=== PATIENT | female | born 1970 | race Caucasian/White ===

== ENCOUNTER 2017-01-13 06:00 | Day surgery (SDC) | payer OTHER ==
[2017-01-08 13:56] VITALS: BMI 26.6
--- NOTE | 2017-01-12 20:06 | HP ---
[facility] - Chief Complaint Chief Complaint: pt is admitted to remove a uterine polyp and at the same time for a colposcopy of the cervix of the uterus for positive HPV high risk. History of Present Illness: Pt had a recent TV U/S to evaluate a fibroid uterus and was found to had a polyp of her uterus. History Source: Patient Limitations to Obtaining History: No Limitations - Past Medical History Allergies/Adverse Reactions: Allergies Allergy/AdvReac Type Severity Reaction Status Date / Time SEASONAL Allergy Uncoded 01/08/17 14:07 DIRECTOR TARGETED MARKETING: No: Alzheimer's, CVA, Dementia, Migraine, Multiple Sclerosis, Peripheral Neuropathy, Parkinson's, Seizure, Syncope, TIA, Vertigo, Other Cardiovascular: No: AFIB, Aneurysm, Aortic Insufficiency, Aortic Stenosis, CAD, CHF, Deep Vein Thrombosis, HTN, Hyperlipdemia, TN, Mitral Insufficiency, Mitral Stenosis, Murmur, Pulmonary Hypertension, Other Pulmonary: No: Asthma, Bronchitis, Cancer, COPD, O2 Dependent, Pneumonia, Previously Intubated, Pulmonary Embolus, Pulmonary Fibrosis, Sleep Apnea, Other Gastrointestinal: No: Ascites, Cancer, Constipation, Crohn's Disease, Diverticulitis, Diverticulosis, Esophageal Varices, Gastritis, GERD, GI Bleed, Hemorrhoids, Hiatal Hernia, Inflamatory Bowel Disease, Irritable Bowel Disease, Pancreatitis, Peptic Ulcer Disease, Ulcerative Colitis, Other Hepatobiliary: No: Cirrhosis, Cholelithiasis, Cholecystitis, Choledocholithiasis , Hepatitis A, Hepatitis B, Hepatitis C, Other Renal/: No: Renal Failure, Renal Inusuff, BPH, Cancer, Hematuria, Hemodialysis , Neurogenic Bladder, Renal Calculi, UTI, Other Reproductive: Yes: Fibroids ...LMP: 01/02/17 ...: No ...: 2 ...Para: 2 Heme/Onc: No: Anemia, B12 Deficiency, Bleeding Disorder, Cancer, Current Chemotherapy, Current Radiation Therapy, Hemochromatosis, Hypercoaguable State, Myeloproliferative Synd, Sickle Cell Disease, Sickle Cell Trait, Thrombocytopenia, Other Infectious Disease: No: AIDS, C-Diff, Herpes Zoster, HIV, MRSA, STD's, Tuberculosis, VREF, Other Musculoskeletal: No: Bursitis, Chronic low back pain, Hemiparesis, Hemiplegia, Osteoarthritis, Paraplegia, Other Rheumatology: No: Fibromyalgia, Gout, Lupus, Rheumatoid Arthritis, Sarcoidosis, Vasculitis, Other Endocrine: No: Lamoille's Disease, Junior's Disease, Diabetes Insipidus, Diabetes Mellitus, Hyperparathyroidism, Hyperthyroidism, Osteopenia, SIADH, Other Dermatology: No: Basal Cell, Cellulitis, Eczema, Melanoma, Psoriasis, Squamous Cell (Pt has hx of GB removed ,T/A,BTL), Other - Current Medications Current Medications: Home Medications Medication Instructions Recorded Cetirizine HCl [Zyrtec -] 10 mg PO DAILY 01/08/17 Levothyroxine [Synthroid -] 25 mcg PO DAILY 01/08/17 Nasonex DAILY 01/08/17 Satellite Physical Exam - Physical Examination General Appearance: Well Nourished, Well Developed, Alert & Oriented x3, No Distress, Calm, Anxious, Ashen, Mild Distress, Moderate Distress, Severe Distress, Obese, Pallor, Poor Hygeine, Thin, Other ENT: Clear, No Discharge, No masses, Drooling, Hoarseness, Nasal Congestion, Rhinnorhea, Thrush, Other Lung: Clear to auscultation, Normal air movement, Other Heart: Regular rate & rhythm, Normal S1, Normal S2, No murmurs, Gallops, Rubs, Other Breasts: Soft, Non-Tender, No masses bilaterally, Breast Implants, Dimpling, Discharge from Nipple, Gynecomastia, Nipple Inversion, Skin Changes, Other Abdomen: Soft, No tenderness, Normal bowel sounds, No CVA, No hepatosplenomegaly , No masses, Other Extremities: No edema, No tenderness/swelling, Normal pulses, No clubbing, No cyanosis, Other Pelvic Exam: Within normal limits External Genitalia, Within normal limits Vagina, Within normal limits Cervix, Within normal limits Uterus, Within normal limits [facility]: Intact, Alert, Oriented (pt has hx of gb removed , t/a , btl) Satellite Impression/Plan - Impression/Plan Impression: uterine polyp to be removed and colposcopy to investigate for cervical dysplasia because of positive HPV high risk Operative Procedure: Hysteroscopy,D/C , polypectomy and colposcopy with cervical biopsies and ecc. Date to be Performed: 01/13/17
[2017-01-13] MEDS ORDERED: LIDOCAINE HCL/PF 2% SDV 5ML VIAL ONE (08:03)
[2017-01-13] MEDS ORDERED: PROPOFOL 20 ML ONE (08:04)
[2017-01-13] MEDS ORDERED: MIDAZOLAM HCL 2 MG/2 ML SINGLE DOSE VIAL ONE ×2 (08:04)
[2017-01-13] MEDS ORDERED: oxyCODONE HCL 5 MG TABLET PO PRN (08:47)
[2017-01-13] MEDS ORDERED: ONDANSETRON 4 MG/2 ML VIAL IVPUSH PRN (08:47)
[2017-01-13] MEDS ORDERED: PROMETHAZINE HCL 25 MG/1 ML VIAL IVPUSH PRN (08:47)
--- NOTE | 2017-01-13 10:20 | OP ---
DATE OF OPERATION: 01/13/2017 PREOPERATIVE DIAGNOSIS: Polyp of the uterus and human papillomavirus high risk positive of cervix. PROCEDURES: 1. Colposcopy. 2. Loop electrosurgical excision procedure. 3. Cervical biopsies. 4. Hysteroscopy. 5. Dilatation and curettage. 6. Polypectomy. SURGEON: Alex Puente MD ANESTHESIA: MAC, given by Dr. Maurer. ESTIMATED BLOOD LOSS: Approximately 5 mL. DESCRIPTION OF PROCEDURES: This patient was brought to the operating room, placed in the supine position, given anesthesia by Dr. Maurer, placed in the lithotomy position. The patient was then prepped and draped, and the cervix was treated with acetic acid, and colposcopy was performed. The colposcopic examination was negative. The green-light examination was negative. The transformation zone was partially noted. This procedure was followed by a 4-quadrant biopsy using a LEEP at 50/50 murrell, blend 1, and biopsies were taken from 12 o'clock, 3 o'clock, 6 o'clock, and 9 o'clock. This was followed by an ECC, and the ECC was followed by a hysteroscopy which revealed abundant endometrial tissue and polyps noted on the posterior wall of the uterus. The polyps were removed using a polyp forceps, and endometrial tissue was removed using a medium-sized curette. Lots of tissue were obtained and sent to Pathology for analysis. The patient did well. Her vital signs were stable. Her hemostasis was good. The cervical hemostasis was achieved using a 5-mm ball curette using 50/50 mrurell, blend 1 power to cauterize the cervical biopsy areas, which were taken by LEEP procedure. ALEX PUENTE M.D. [id number]
[2017-01-13 12:11] VITALS: TEMP 97.8
[2017-01-13 13:52] VITALS: BP 98/72; PULSE 82
--- NOTE | 2017-01-14 15:02 | PATH ---
Surgical Pathology Report Patient Name: FERCHO OSEGUERA [facility]. Rec. #: [id number] /Age/Gender: 1970 (Age: 46) / F Account: [id number] Location: [facility] SURGICAL Taken: 01/13/2017 Received: 01/13/2017 Reported: 01/14/2017 Physicians: Guy Puente M.D. Specimen(s) Received A: CERVICAL BIOPSY 12:00 B: CERVICAL BIOPSY 9:00 C: CERVICAL BIOPSY 3:00 D: CERVICAL BIOPSY 6:00 E: ENDOCERVICAL CURETTINGS F: ENDOMETRIAL CURETTINGS G: ENDOMETRIAL POLYP Clinical History Polyp of corpus uteri Final Diagnosis A. CERVIX, 12:00, BIOPSY: CERVICAL SQUAMOUS AND ENDOCERVICAL MUCOSA WITH LOW GRADE SQUAMOUS INTRAEPITHELIAL LESION (CERVICAL INTRAEPITHELIAL NEOPLASIA 1/BK 1). B. CERVIX, 9:00, BIOPSY: CERVICAL SQUAMOUS AND ENDOCERVICAL MUCOSA WITH LOW GRADE SQUAMOUS INTRAEPITHELIAL LESION (CERVICAL INTRAEPITHELIAL NEOPLASIA 1/BK 1). C. CERVIX, 3:00, BIOPSY: CERVICAL SQUAMOUS AND ENDOCERVICAL MUCOSA WITH FOCAL LOW GRADE SQUAMOUS INTRAEPITHELIAL LESION (CERVICAL INTRAEPITHELIAL NEOPLASIA 1/BK 1). D. CERVIX, 6:00, BIOPSY: CERVICAL SQUAMOUS AND ENDOCERVICAL MUCOSA WITH FOCAL HPV RELATED KOILOCYTIC CHANGE. E. ENDOCERVIX, CURETTAGE: FRAGMENTS OF BENIGN ENDOCERVICAL TISSUE. FRAGMENTS OF ENDOMETRIAL POLYP. F. ENDOMETRIUM, CURETTAGE: POLYPOID FRAGMENTS OF DISORDERED PROLIFERATIVE ENDOMETRIUM COMPATIBLE WITH FRAGMENTS OF ENDOMETRIAL POLYP. BACKGROUND FRAGMENTS OF DISORDERED PROLIFERATIVE ENDOMETRIUM WITH FOCAL FEATURES OF CHRONIC ENDOMETRITIS. SCANT FRAGMENTS OF BENIGN ENDOCERVICAL TISSUE. G. ENDOMETRIAL POLYP, POLYPECTOMY: POLYPOID FRAGMENTS OF DISORDERED PROLIFERATIVE ENDOMETRIUM COMPATIBLE WITH ENDOMETRIAL POLYP. FRAGMENTS OF BENIGN SMOOTH MUSCLE. SCANT FRAGMENTS OF BENIGN ENDOCERVICAL TISSUE. Electronically Signed Jame Thornton M.D. Gross Description A. Received in formalin labeled "cervical biopsy 12:00" is a 1.0 x 0.3 x 0.2 cm wheeler, irregular, unoriented portion of soft tissue which is partially surfaced by a wheeler, shiny glistening mucosa. The specimen is inked in green, serially sectioned and entirely submitted in one cassette. B. Received in formalin labeled "cervical biopsy 9:00" is a 0.6 x 0.6 x 0.2 cm wheeler, irregular, unoriented portion of soft tissue which is partially surfaced by a wheeler, shiny and glistening mucosa. The specimen is inked green, trisected and entirely submitted in one cassette. C. Received in formalin labeled "cervical biopsy 3:00" is a 0.6 x 0.5 x 0.3 cm wheeler, irregular, unoriented portion of soft tissue which is partially surfaced by a wheeler, shiny and glistening mucosa. The specimen is inked green, trisected and entirely submitted in one cassette. D. Received in formalin labeled "cervical biopsy 6:00" is a 0.5 x 0.4 x 0.3 cm wheeler, irregular, unoriented portion of soft tissue which is partially surfaced by a wheeler, shiny and glistening mucosa. The specimen is inked green, bisected and entirely submitted in one cassette. E. Received in formalin labeled "endocervical curettings" is a 1.5 x 1.1 x 0.3 cm aggregate of wheeler soft tissue fragments. The formalin is filtered and the specimen is entirely submitted in one cassette. F. Received in formalin labeled "endometrial curettings" is a 3.0 x 3.0 x 0.4 cm aggregate of wheeler soft tissue fragments. The formalin is filtered and the specimen is entirely submitted in 3 cassettes. G. Received in formalin labeled "endometrial polyp" is a 1.4 x 1.3 x 0.3 cm aggregate of wheeler-pink, irregular to polypoid portions of soft tissue. The specimen is submitted in toto in one cassette. 01/13/2017 [facility]01/13/2017
== END 2017-01-13 13:50 | disposition home or self-care (01) ==
LOC: JASU-SURG 06:00
PROVIDERS: ATTEND Obstetrics & Gynecology
PROC: 0UBC7ZX Excision of Cervix, Via Natural or Artificial Opening, Diagnostic (ICD-10-PCS; principal; 2017-01-13 08:00)
PROC: 0UB98ZX Excision of Uterus, Via Natural or Artificial Opening Endoscopic, Diagnostic (ICD-10-PCS; 2017-01-13 08:00)
DX: N84.0 Polyp of corpus uteri (principal); R87.810 Cervical high risk human papillomavirus (HPV) DNA test positive
CPT/HCPCS: 88305-TC; 94760

== ENCOUNTER 2019-07-09 13:46 | Emergency (ER) | payer OTHER ==
[2019-07-09 13:55] VITALS: BMI 23.1
[2019-07-09] MEDS ORDERED: METOCLOPRAMIDE HCL INJECTION 10 MG/2 ML VIAL IVPB ONE (14:36)
[2019-07-09] MEDS ORDERED: ACETAMINOPHEN 1000 MG/100 ML VIAL (NON FORMULARY) IVPB ONE (14:36)
[2019-07-09] MEDS ORDERED: SODIUM CHLORIDE 1,000 ML IV STA (14:36)
--- NOTE | 2019-07-09 14:37 | PDOC ---
History of Present Illness - General Chief Complaint: Headache Stated Complaint: DIZZINESS/MIGRAINE/NAUSAU Time Seen by Provider: 07/09/19 14:18 History Source: Patient Exam Limitations: No Limitations Past History - Travel Traveled outside of the country in the last 30 days: No Close contact w/someone who was outside of country & ill: No - Past Medical History Allergies/Adverse Reactions: Allergies Allergy/AdvReac Type Severity Reaction Status Date / Time No Known Drug Allergies Allergy Verified 01/13/17 21:13 SEASONAL Allergy Uncoded 01/08/17 14:07 Home Medications: Ambulatory Orders Cetirizine HCl [Zyrtec -] 10 mg PO DAILY 01/08/17 Levothyroxine [Synthroid -] 25 mcg PO DAILY 01/08/17 Nasonex DAILY 01/08/17 Sulfamethoxazole/Trimethoprim [Bactrim Ds -] 1 tab PO BID #27 tablet 07/09/19 Anemia: No Asthma: No Cancer: No Cardiac Disorders: No CVA: No COPD: No CHF: No Dementia: No Diabetes: No GI Disorders: No Disorders: No HTN: No Hypercholesterolemia: No Liver Disease: No Seizures: No Thyroid Disease: Yes Other medical history: Migraines - Surgical History Cholecystectomy: Yes - Suicide/Smoking/Psychosocial Hx Smoking History: Never smoked Information on smoking cessation initiated: No Hx Alcohol Use: No Drug/Substance Use Hx: No Substance Use Type: None Review of Systems - Review of Systems Able to Perform ROS?: Yes Comments:: 07/09/19 14:19 CONSTITUTIONAL: Present: fever Absent: chills, diaphoresis, generalized weakness, malaise, loss of appetite HEENT: Absent: rhinorrhea, nasal congestion, throat pain, throat swelling, difficulty swallowing, mouth swelling, ear pain, eye pain, visual Changes CARDIOVASCULAR: Absent: chest pain, loss of consciousness, palpitations, irregular heart rate, peripheral edema RESPIRATORY: Absent: cough, shortness of breath, dyspnea with exertion, orthopnea, wheezing, stridor, hemoptysis GASTROINTESTINAL: Absent: abdominal pain, abdominal distension, nausea, vomiting, diarrhea, constipation, melena, hematochezia GENITOURINARY: Present: frequency Absent: dysuria, urgency, hesitancy, hematuria, flank pain, genital pain MUSCULOSKELETAL: Absent: myalgia, arthralgia, joint swelling SKIN: Absent: rash, itching, pallor HEMATOLOGIC/IMMUNOLOGIC: Absent: easy bleeding, easy bruising, lymphadenopathy, frequent infections ENDOCRINE: Absent: unexplained weight gain, unexplained weight loss, heat intolerance, cold intolerance NEUROLOGIC: Present: headache, dizziness Absent: focal weakness or paresthesias, unsteady gait, seizure, mental status changes, bladder or bowel incontinence PSYCHIATRIC: Absent: anxiety, depression, suicidal or homicidal ideation, hallucinations. Is the patient limited Polish proficient: No *Physical Exam - Vital Signs Last Vital Signs Temp Pulse Resp BP Pulse Ox 100.9 F H 101 H 20 108/79 99 07/09/19 13:47 07/09/19 13:47 07/09/19 13:47 07/09/19 13:47 07/09/19 13:47 - Physical Exam Comments: 07/09/19 14:20 GENERAL: Well developed, well nourished. Awake and alert. No acute distress. HEENT: Normocephalic, atraumatic. PERRLA, EOMI. No conjunctival pallor. Sclera are non- icteric. Moist mucous membranes. Oropharynx is clear. NECK: Supple. Full ROM. No JVD. Carotid pulses 2+ and symmetric, without bruits. No thyromegaly. No lymphadenopathy. CARDIOVASCULAR: Regular rate and rhythm. No murmurs, rubs, or gallops. Distal pulses are 2+ and symmetric. PULMONARY: No evidence of respiratory distress. Lungs clear to auscultation bilaterally. No wheezing, rales or rhonchi. ABDOMINAL: Suprapubic tenderness. Soft. Non-distended. No rebound or guarding. No organomegaly. Normoactive bowel sounds. MUSCULOSKELETAL Normal range of motion at all joints. No bony deformities or tenderness. No CVA tenderness. EXTREMITIES: No cyanosis. No clubbing. No edema. No calf tenderness. SKIN: Warm and dry. Normal capillary refill. No rashes. No jaundice. NEUROLOGICAL: Alert, awake, appropriate. Cranial nerves 2-12 intact. No deficits to light touch and temperature in face, upper extremities and lower extremities. No motor deficits in the in face, upper extremities and lower extremities. Normoreflexic in the upper and lower extremities. Normal speech. Toes are down- going bilaterally. Gait is normal without ataxia. PSYCHIATRIC: Cooperative. Good eye contact. Appropriate mood and affect. ED Treatment Course - LABORATORY CBC & Chemistry Diagram: 07/09/19 15:10 07/09/19 14:48 Medical Decision Making - Medical Decision Making 07/09/19 15:47 The patient is 48 y/o F who presents to the ER today for headache and urinary discomfort since Thursday. She was diagnosed at urgent care with a UTI and migraine and was placed on antibiotics for an infection (unsure as to which). She states over the last two days she developed fevers and her frequency never got better. She also admits to bloating. She also reports that her migraine has been persistent despite home medication. A/P: Migraine, dysuria On exam pt febrile, suprapubic tenderness. No CVAT Pt is neurologically intact with no focal findings. Negative kernigs and brudinski signs Failed UTI with outpatient abx? Basic labs, urine, IVF and migraine cocktail ordered Re-evaluate Signout given to ALEXANDREA Peraza *DC/Admit/Observation/Transfer Diagnosis at time of Disposition: Transaminitis, Pyelonephritis Migraine Qualifiers: Migraine type: unspecified Status migrainosus presence: without status migrainosus Intractability: not intractable Qualified Code(s): G43.909 - Migraine, unspecified, not intractable, without status migrainosus - Discharge Dispostion Disposition: HOME Condition at time of disposition: Improved - Prescriptions Prescriptions: Sulfamethoxazole/Trimethoprim [Bactrim Ds -] 1 tab PO BID #27 tablet - Referrals - Patient Instructions Printed Discharge Instructions: DI for Kidney Infection, DI for Migraine Additional Instructions: Thank you for choosing [facility]. It was a pleasure taking care of you. You were started on antibiotics for possible kidney infection Please stop the Macrobid and instead start taking Bactrim Drink at least 2-3L of water daily You were also noted with elevated liver enzymes You had ultrasound done which showed no acute findings Please refrain from drinking alcohol or taking Tylenol for now Continue follow-up with your doctor and neurologist Return to the Emergency Department if your symptoms worsen or persist, you have fever, shortness of breath, chest pain, severe abdominal pain, vomiting, weakness of extremities (arms and/or legs), changes in vision or walking or other concerning symptoms. - Post Discharge Activity Forms/Work/School Notes: Back to Work
[2019-07-09] MEDS ORDERED: METOCLOPRAMIDE HCL INJECTION 10 MG/2 ML VIAL ONE (14:58)
[2019-07-09] MEDS ORDERED: ACETAMINOPHEN INJECTION 100 ML IVPB ONE (14:59)
[2019-07-09 15:02] LABS: PH,URINE 5.5 (5.0-8.0); URINE APPEARANCE CLEAR; URINE BILIRUBIN NEGATIVE (NEGATIVE); URINE COLOR YELLOW; URINE GLUCOSE (UA) NEGATIVE (NEGATIVE); URINE KETONE NEGATIVE (NEGATIVE); URINE LEUK ESTERASE NEGATIVE (NEGATIVE); URINE NITRITE NEGATIVE (NEGATIVE); URINE PROTEIN TRACE (NEGATIVE); URINE UROBILINOGEN 0.2 mg/dL (0.2-1.0)
[2019-07-09 15:22] LABS: BASO % 0.7 % (0-2.0); EOS % 1.4 % (0-4.5); HEMATOCRIT 42.4 % (32.4-45.2); HEMOGLOBIN 14.3 GM/dL (10.7-15.3); LYMPH % 2.6 % (8-40); MCH 30.6 pg (25.7-33.7); MCHC 33.8 g/dl (32.0-36.0); MEAN CELL VOLUME 90.6 fl (80-96); MEAN PLT VOLUME 7.4 fl (7.5-11.1); MONO % 5.1 % (3.8-10.2); NEUT % 90.2 % (42.8-82.8); PLATELET COUNT 271 K/MM3 (134-434); RBC 4.68 M/mm3 (3.60-5.2); RDW 13.9 % (11.6-15.6); WHITE BLOOD COUNT 6.7 K/mm3 (4.0-10.0)
[2019-07-09 15:31] LABS: INR 1.05 (0.83-1.09); PROTHROMBIN TIME (PATIENT) 12.4 SEC (9.7-13.0)
[2019-07-09 15:48] LABS: ALBUMIN 3.6 g/dl (3.4-5.0); BILIRUBIN,TOTAL 0.3 mg/dL (0.2-1); BLOOD UREA NITROGEN 20.3 mg/dL (7-18); CALCIUM 9.1 mg/dL (8.5-10.1); CREATININE 1.2 mg/dL (0.55-1.3); POTASSIUM 3.8 mmol/L (3.5-5.1); TOT PROT 7.2 g/dl (6.4-8.2)
[2019-07-09 16:26] VITALS: TEMP 98.1
--- NOTE | 2019-07-09 18:20 | PDOC ---
*Physical Exam - Vital Signs Last Vital Signs Temp Pulse Resp BP Pulse Ox 98.1 F 86 20 118/81 100 07/09/19 16:25 07/09/19 16:25 07/09/19 16:25 07/09/19 16:25 07/09/19 16:25 ED Treatment Course - LABORATORY CBC & Chemistry Diagram: 07/09/19 15:10 07/09/19 14:48 - ADDITIONAL ORDERS Additional order review: Laboratory Results 07/09/19 07/09/19 07/09/19 15:10 15:10 15:10 PT with INR 12.40 INR 1.05 Sodium Potassium Chloride Carbon Dioxide Anion Gap BUN Creatinine Est GFR (CKD-EPI)AfAm Est GFR (CKD-EPI)NonAf Random Glucose Lactic Acid 0.9 Calcium Total Bilirubin AST ALT Alkaline Phosphatase Total Protein Albumin Lipase 207 Urine Color Urine Appearance Urine pH Ur Specific Hurst Urine Protein Urine Glucose (UA) Urine Ketones Urine Blood Urine Nitrite Urine Bilirubin Urine Urobilinogen Ur Leukocyte Esterase Urine HCG, Qual 07/09/19 07/09/19 07/09/19 14:50 14:50 14:48 PT with INR INR Sodium 138 Potassium 3.8 Chloride 104 Carbon Dioxide 28 Anion Gap 7 L BUN 20.3 H Creatinine 1.2 Est GFR (CKD-EPI)AfAm 62.32 Est GFR (CKD-EPI)NonAf 53.77 Random Glucose 96 Lactic Acid Calcium 9.1 Total Bilirubin 0.3 AST 251 H ALT 252 H Alkaline Phosphatase 149 H Total Protein 7.2 Albumin 3.6 Lipase Urine Color Yellow Urine Appearance Clear Urine pH 5.5 Ur Specific Hurst 1.012 Urine Protein Trace Urine Glucose (UA) Negative Urine Ketones Negative Urine Blood Negative Urine Nitrite Negative Urine Bilirubin Negative Urine Urobilinogen 0.2 Ur Leukocyte Esterase Negative Urine HCG, Qual Negative 07/09/19 15:10 RBC 4.68 MCV 90.6 MCHC 33.8 RDW 13.9 D MPV 7.4 L Neutrophils % 90.2 H Lymphocytes % 2.6 L D Monocytes % 5.1 Eosinophils % 1.4 Basophils % 0.7 - RADIOLOGY Radiology Studies Ordered: Category Date Time Status ABDOMEN US -LIMITED [US] Stat Ultrasound 07/09/19 16:42 Taken - Medications Given in the ED: ED Medications Discontinued Medications Generic Name Dose Route Start Last Admin Trade Name Freq PRN Reason Stop Dose Admin Acetaminophen 1,000 mg 07/09/19 14:36 07/09/19 15:10 Ofirmev Injection - IVPB 07/09/19 14:37 1,000 mg ONCE ONE Administration Diphenhydramine HCl 12.5 mg 07/09/19 14:36 07/09/19 15:00 Benadryl Injection - IVPB 07/09/19 14:37 12.5 mg ONCE ONE Administration Sodium Chloride 1,000 mls @ 1,000 mls/hr 07/09/19 14:36 07/09/19 15:17 Normal Saline - IV 07/09/19 15:35 1,000 mls/hr ASDIR STA Administration Metoclopramide HCl 10 mg 07/09/19 14:36 07/09/19 15:17 Reglan Injection - IVPB 07/09/19 14:37 10 mg ONCE ONE Administration Medical Decision Making - Medical Decision Making Patient signed out to me by ALEXANDREA Plaza, pending re-eval and labs Abnormal Lab Results 07/09/19 07/09/19 14:48 15:10 MPV 7.4 L Neutrophils % 90.2 H Lymphocytes % 2.6 L D Anion Gap 7 L BUN 20.3 H AST 251 H ALT 252 H Alkaline Phosphatase 149 H On reassessment, patient mentions feeling slightly better Repeat vitals improved from prior Labs notable for elevated LFTs Patient denies abdominal pain; only c/o suprapubic and lower back pain On exam, with no CVA tendenerness UA was negative Called pharmacy and was told patient was discharged on macrobid Lipase was added on which came back normal RUQ sono done given elevated LFTs and pending results 07/09/19 18:17 RUQ sono results: FINDINGS: The liver is normal in size, contour and echogenicity. No intrahepatic biliary dilatation. No hepatic masses visualized. The portal vein is patent with hepatopedal flow. The hepatic veins are patent The common bile duct is within normal limits measuring 5 mm. The gallbladder is surgically absent The pancreas, right kidney and visualized portions of the abdominal aorta and IVC are unremarkable RUQ sono negative Given patient having fevers and with urinary complaints, will change abx to Bactrim to cover for possible pyelo Patient also given Toradol for migraine SIMON Patient follows with Dr. Cormier re: her migraines; advised continue f/u with him Patient appears better stable for dc Plan of care d/w Dr. Rivera 07/09/19 19:18 *DC/Admit/Observation/Transfer Diagnosis at time of Disposition: Transaminitis, Pyelonephritis Migraine Qualifiers: Migraine type: unspecified Status migrainosus presence: without status migrainosus Intractability: not intractable Qualified Code(s): G43.909 - Migraine, unspecified, not intractable, without status migrainosus - Discharge Dispostion Disposition: HOME Condition at time of disposition: Improved Decision to Admit order: No - Prescriptions Prescriptions: Sulfamethoxazole/Trimethoprim [Bactrim Ds -] 1 tab PO BID #27 tablet - Referrals - Patient Instructions Printed Discharge Instructions: DI for Kidney Infection, DI for Migraine Additional Instructions: Thank you for choosing [facility]. It was a pleasure taking care of you. You were started on antibiotics for possible kidney infection Please stop the Macrobid and instead start taking Bactrim Drink at least 2-3L of water daily You were also noted with elevated liver enzymes You had ultrasound done which showed no acute findings Please refrain from drinking alcohol or taking Tylenol for now Continue follow-up with your doctor and neurologist Return to the Emergency Department if your symptoms worsen or persist, you have fever, shortness of breath, chest pain, severe abdominal pain, vomiting, weakness of extremities (arms and/or legs), changes in vision or walking or other concerning symptoms. - Post Discharge Activity
[2019-07-09] MEDS ORDERED: KETOROLAC TROMETHAMINE 30 MG/1 ML VIAL IVPUSH ONE (18:47)
[2019-07-09] MEDS ORDERED: SULFAMETHOXAZOLE/TRIMETHOPRIM 800MG/160MG D.S. TABLET PO ONE (19:17)
[2019-07-09] MEDS ORDERED: SULFAMETHOXAZOLE/TRIMETHOPRIM 800MG/160MG D.S. TABLET ONE (19:33)
[2019-07-09] MEDS ORDERED: KETOROLAC TROMETHAMINE 30 MG/1 ML VIAL ONE (19:33)
[2019-07-09 19:52] VITALS: BP 119/82; PULSE 82
--- NOTE | 2019-07-10 17:04 | EKG ---
Test Reason : Blood Pressure : / mmHG Vent. Rate : 097 BPM Atrial Rate : 097 BPM P-R Int : 144 ms QRS Dur : 072 ms QT Int : 322 ms P-R-T Axes : 035 034 023 degrees QTc Int : 408 ms NORMAL SINUS RHYTHM NORMAL ECG WHEN COMPARED WITH ECG OF 10-JAN-2017 08:05, PREMATURE ATRIAL COMPLEXES ARE NO LONGER PRESENT NONSPECIFIC T WAVE ABNORMALITY, WORSE IN ANTERIOR LEADS Confirmed by MD NADER, AJ ([id number]) on 07/10/2019 5:03:47 PM Referred By: Confirmed By:AJ DOE MD
== END 2019-07-09 19:54 | disposition home or self-care (01) ==
LOC: JER 13:46
PROC: 3E033NZ Introduction of Analgesics, Hypnotics, Sedatives into Peripheral Vein, Percutaneous Approach (ICD-10-PCS; principal; 2019-07-09)
PROC: 3E033GC Introduction of Other Therapeutic Substance into Peripheral Vein, Percutaneous Approach (ICD-10-PCS; 2019-07-09)
PROC: 3E033GC Introduction of Other Therapeutic Substance into Peripheral Vein, Percutaneous Approach (ICD-10-PCS; 2019-07-09)
PROC: 3E0333Z Introduction of Anti-inflammatory into Peripheral Vein, Percutaneous Approach (ICD-10-PCS; 2019-07-09)
DX: N12 Tubulo-interstitial nephritis, not specified as acute or chronic (principal); G43.909 Migraine, unspecified, not intractable, without status migrainosus; R74.0 Nonspecific elevation of levels of transaminase and lactic acid dehydrogenase [LDH]
CPT/HCPCS: 36415; 76705-TC; 80053; 81003; 83605; 83690; 84703; 85025; 85610; 87040; 87086; 93005; 93010; 96374; 96375; 99284-25; J0131; J7030

== ENCOUNTER 2021-07-27 07:40 | Inpatient (IN) | payer OTHER ==
[2021-07-27 07:54] VITALS: BMI 26.2
[2021-07-27] MEDS ORDERED: SODIUM CHLORIDE 0.9% 500 ML INFUS.BAG IV ONE (08:05)
[2021-07-27] MEDS ORDERED: ACETAMINOPHEN 1000 MG/100 ML VIAL (NON FORMULARY) IVPB ONE (08:05)
[2021-07-27] MEDS ORDERED: ACETAMINOPHEN INJECTION 100 ML IVPB ONE (08:31)
[2021-07-27 09:38] LABS: HEMATOCRIT 37.4 % (32.4-45.2); HEMOGLOBIN 12.4 GM/dL (10.7-15.3); MCH 27.2 pg (25.7-33.7); MCHC 33.2 g/dl (32.0-36.0); MEAN CELL VOLUME 81.7 fl (80-96); MEAN PLT VOLUME 7.3 fl (7.5-11.1); PLATELET COUNT 343 10^3/uL (134-434); RBC 4.58 M/mm3 (3.60-5.2); RDW 17.9 % (11.6-15.6); WHITE BLOOD COUNT 6.8 K/mm3 (4.0-10.0)
[2021-07-27 11:02] LABS: ANISOCYTOSIS 1+; MACROCYTOSIS 0; PLATELET ESTIMATE NORMAL; TEAR DROP CELLS 1+
[2021-07-27 11:05] LABS: BLOOD UREA NITROGEN 12.5 mg/dL (7-18); CHLORIDE 106 mmol/L (98-107); CO2 28 mmol/L (21-32); CREATININE 0.7 mg/dL (0.55-1.3); GLUCOSE,RANDOM 107 mg/dL (74-106); SODIUM 139 mmol/L (136-145)
[2021-07-27 11:06] LABS: ALBUMIN 3.3 g/dl (3.4-5.0); ALK PHOS 150 U/L (45-117); BILIRUBIN,TOTAL 1.7 mg/dL (0.2-1); CALCIUM 8.5 mg/dL (8.5-10.1); SGOT/AST 685 U/L (15-37); SGPT/ALT 468 U/L (13-61); TOT PROT 6.9 g/dl (6.4-8.2)
[2021-07-27 12:19] LABS: EPI CELLS 28 /uL (0-25.1); HYALINE CASTS 6 /uL (0-3.1); PH,URINE 5.5 (5.0-8.0); URINE APPEARANCE CLEAR; URINE BACTERIA 303 /uL (0-1359); URINE BILIRUBIN 1+ (NEGATIVE); URINE COLOR DK YELLOW; URINE GLUCOSE (UA) NEGATIVE (NEGATIVE); URINE KETONE NEGATIVE (NEGATIVE); URINE LEUK ESTERASE 1+ (NEGATIVE); URINE NITRITE NEGATIVE (NEGATIVE); URINE PROTEIN 1+ (NEGATIVE); URINE RBC 20 /uL (0-23.9); URINE WBC 166 /uL (0-25.8)
[2021-07-27 12:21] LABS: HCG,QUALITATIVE URINE Negative
[2021-07-27] MEDS ORDERED: CEFTRIAXONE 1 GM in DEXTROSE 5%-WATER - 50 ML IVPB ONE (13:27)
[2021-07-27] MEDS ORDERED: CEFTRIAXONE 1 GM/50 ML BAG ONE (13:36)
[2021-07-27] MEDS ORDERED: TOPIRAMATE 25 MG TABLET PO ONE (15:20)
[2021-07-27 15:25] LABS: BILIRUBIN,DIRECT 0.8 mg/dL (0.0-0.2)
[2021-07-27] MEDS ORDERED: PANTOPRAZOLE SODIUM 40 MG VIAL ONE (15:30)
[2021-07-27] MEDS: PANTOPRAZOLE SODIUM 40 MG VIAL IVPUSH SCH (15:35)
[2021-07-27] MEDS: ENOXAPARIN NA (PORCINE) 40 MG/0.4 ML DISP.SYRIN SQ SCH (15:35)
[2021-07-27] MEDS ORDERED: CEFTRIAXONE 1 GM in DEXTROSE 5%-WATER - 50 ML IVPB SCH (16:45)
[2021-07-27] MEDS: SODIUM CHLORIDE 1,000 ML IV SCH (17:25)
[2021-07-27 17:47] LABS: BILIRUBIN,DIRECT 1.2 mg/dL (0.0-0.2)
[2021-07-27 19:13] LABS: COCAINE, UR NEGATIVE (NEGATIVE); OPIATES, URI NEGATIVE (NEGATIVE); PHENCYCLIDINE,URINE NEGATIVE (NEGATIVE); URINE AMPHETAMINES NEGATIVE (NEGATIVE); URINE BARBITURATES NEGATIVE (NEGATIVE); URINE BENZODIAZEPINES NEGATIVE (NEGATIVE)
[2021-07-27 19:14] LABS: METHADONE, UR NEGATIVE (NEGATIVE)
[2021-07-27] MEDS ORDERED: MAG HYDROX/AL HYDROX/SIMETH 30 ML UNIT-DOSE CUP PO ONE (19:58)
[2021-07-27] MEDS ORDERED: KETOROLAC TROMETHAMINE 15 MG/ML VIAL IVPUSH ONE (20:12)
[2021-07-28] MEDS: LEVOTHYROXINE NA 25 MCG TABLET (FP) PO SCH (06:07)
[2021-07-28] MEDS: ENOXAPARIN NA (PORCINE) 40 MG/0.4 ML DISP.SYRIN SQ SCH (09:25)
[2021-07-28] MEDS: PANTOPRAZOLE SODIUM 40 MG VIAL IVPUSH SCH (09:25)
[2021-07-28 09:42] LABS: HEMATOCRIT 35.8 % (32.4-45.2); HEMOGLOBIN 11.8 GM/dL (10.7-15.3); MCH 26.8 pg (25.7-33.7); MEAN CELL VOLUME 81.2 fl (80-96); MEAN PLT VOLUME 7.5 fl (7.5-11.1); PLATELET COUNT 295 10^3/uL (134-434); RDW 18.5 % (11.6-15.6); WHITE BLOOD COUNT 6.8 K/mm3 (4.0-10.0)
[2021-07-28 09:43] LABS: BASO % 0.3 % (0-2.0); EOS % 0.4 % (0-4.5); LYMPH % 5.8 % (8-40); MONO % 5.2 % (3.8-10.2); NEUT % 88.3 % (42.8-82.8)
[2021-07-28 10:11] LABS: ALBUMIN 2.8 g/dl (3.4-5.0); CREATININE 0.6 mg/dL (0.55-1.3); TOT PROT 6.2 g/dl (6.4-8.2)
[2021-07-28 10:12] LABS: BILIRUBIN,TOTAL 2.1 mg/dL (0.2-1)
[2021-07-28] MEDS ORDERED: ACETAMINOPHEN/CAFFEINE/BUTALBITAL 1 TAB PO ONE (12:22)
[2021-07-28] MEDS ORDERED: DEXTROSE 5%-WATER - 50 ML IVPB ONE (13:24)
[2021-07-28] MEDS ORDERED: cefTRIAXone SODIUM 1 GM VIAL ONE (13:24)
[2021-07-28] MEDS: CEFTRIAXONE 1 GM in DEXTROSE 5%-WATER - 50 ML IVPB SCH (13:46)
[2021-07-28 15:40] LABS: BLOOD UREA NITROGEN 9.2 mg/dL (7-18)
[2021-07-28] MEDS ORDERED: PT OWN MED DRAWER 7, Y5N ONE (20:49)
[2021-07-28] MEDS: SODIUM CHLORIDE 1,000 ML IV SCH (21:01)
[2021-07-28 21:02] LABS: EPI CELLS >36 /uL (0-25.1); HYALINE CASTS 8 /uL (0-3.1); URINE APPEARANCE CLOUDY; URINE BACTERIA 2120 /uL (0-1359); URINE BILIRUBIN NEGATIVE (NEGATIVE); URINE COLOR YELLOW; URINE GLUCOSE (UA) NEGATIVE (NEGATIVE); URINE KETONE 1+ (NEGATIVE); URINE LEUK ESTERASE 3+ (NEGATIVE); URINE NITRITE NEGATIVE (NEGATIVE); URINE PROTEIN NEGATIVE (NEGATIVE); URINE RBC 10 /uL (0-23.9); URINE WBC 214 /uL (0-25.8)
[2021-07-28] MEDS: NORTRIPTYLINE HCL 25 MG CAPSULE PO SCH (21:03)
[2021-07-29] MEDS: SODIUM CHLORIDE 1,000 ML IV SCH ×2 (01:02→15:07)
[2021-07-29] MEDS: LEVOTHYROXINE NA 25 MCG TABLET (FP) PO SCH (06:00)
[2021-07-29 09:01] LABS: BASO % 0.5 % (0-2.0); HEMATOCRIT 33.8 % (32.4-45.2); HEMOGLOBIN 11.3 GM/dL (10.7-15.3); LYMPH % 19.9 % (8-40); MCH 26.9 pg (25.7-33.7); MCHC 33.4 g/dl (32.0-36.0); MEAN CELL VOLUME 80.7 fl (80-96); MEAN PLT VOLUME 7.3 fl (7.5-11.1); MONO % 8.2 % (3.8-10.2); NEUT % 67.4 % (42.8-82.8); PLATELET COUNT 304 10^3/uL (134-434); RBC 4.19 M/mm3 (3.60-5.2); RDW 18.2 % (11.6-15.6); WHITE BLOOD COUNT 4.2 K/mm3 (4.0-10.0)
[2021-07-29 09:26] LABS: ALBUMIN 2.8 g/dl (3.4-5.0); BLOOD UREA NITROGEN 7.9 mg/dL (7-18); CALCIUM 8.3 mg/dL (8.5-10.1)
[2021-07-29 09:30] LABS: CREATININE 0.6 mg/dL (0.55-1.3)
[2021-07-29 09:31] LABS: BILIRUBIN,TOTAL 0.7 mg/dL (0.2-1); TOT PROT 6.4 g/dl (6.4-8.2)
[2021-07-29] MEDS ORDERED: PT OWN MED DRAWER 7, Y5N ONE (09:59)
[2021-07-29] MEDS: PANTOPRAZOLE SODIUM 40 MG VIAL IVPUSH SCH (10:02)
[2021-07-29] MEDS: ENOXAPARIN NA (PORCINE) 40 MG/0.4 ML DISP.SYRIN SQ SCH (10:03)
[2021-07-29] MEDS ORDERED: cefTRIAXone SODIUM 1 GM VIAL ONE (11:43)
[2021-07-29] MEDS ORDERED: DEXTROSE 5%-WATER - 50 ML IVPB ONE (11:43)
[2021-07-29] MEDS: CEFTRIAXONE 1 GM in DEXTROSE 5%-WATER - 50 ML IVPB SCH (11:47)
[2021-07-29] MEDS: LORATADINE 10 MG TABLET PO SCH (12:58)
[2021-07-29] MEDS: NORTRIPTYLINE HCL 25 MG CAPSULE PO SCH (21:42)
[2021-07-29] MEDS ORDERED: traMADol HCL 50 MG TABLET PO ONE (22:02)
[2021-07-30] MEDS: SODIUM CHLORIDE 1,000 ML IV SCH ×3 (04:36→19:12)
[2021-07-30] MEDS: LEVOTHYROXINE NA 25 MCG TABLET (FP) PO SCH (06:25)
[2021-07-30] MEDS ORDERED: PT OWN MED DRAWER 7, Y5N ONE ×2 (09:04→21:32)
[2021-07-30] MEDS: PANTOPRAZOLE SODIUM 40 MG VIAL IVPUSH SCH (09:11)
[2021-07-30] MEDS: LORATADINE 10 MG TABLET PO SCH (09:11)
[2021-07-30] MEDS: ENOXAPARIN NA (PORCINE) 40 MG/0.4 ML DISP.SYRIN SQ SCH (09:15)
[2021-07-30 09:45] LABS: BASO % 0.4 % (0-2.0); EOS % 4.7 % (0-4.5); HEMATOCRIT 36.1 % (32.4-45.2); LYMPH % 29.3 % (8-40); MCH 26.9 pg (25.7-33.7); MCHC 33.3 g/dl (32.0-36.0); MEAN CELL VOLUME 80.6 fl (80-96); MEAN PLT VOLUME 7.4 fl (7.5-11.1); MONO % 6.6 % (3.8-10.2); PLATELET COUNT 348 10^3/uL (134-434); RBC 4.48 M/mm3 (3.60-5.2); RDW 17.9 % (11.6-15.6); WHITE BLOOD COUNT 4.6 K/mm3 (4.0-10.0)
[2021-07-30 10:50] LABS: BLOOD UREA NITROGEN 6.8 mg/dL (7-18); CALCIUM 8.6 mg/dL (8.5-10.1)
[2021-07-30 10:54] LABS: CREATININE 0.6 mg/dL (0.55-1.3)
[2021-07-30 10:55] LABS: BILIRUBIN,TOTAL 0.5 mg/dL (0.2-1); TOT PROT 6.7 g/dl (6.4-8.2)
[2021-07-30] MEDS ORDERED: DEXTROSE 5%-WATER - 50 ML IVPB ONE (11:28)
[2021-07-30] MEDS ORDERED: cefTRIAXone SODIUM 1 GM VIAL ONE (11:28)
[2021-07-30] MEDS: POLYETHYLENE GLYCOL (HEALTHYLAX) 3350 17 GM PACKET PO SCH ×2 (11:31→21:36)
[2021-07-30] MEDS: CEFTRIAXONE 1 GM in DEXTROSE 5%-WATER - 50 ML IVPB SCH (11:32)
[2021-07-30] MEDS: NORTRIPTYLINE HCL 25 MG CAPSULE PO SCH (21:36)
[2021-07-31] MEDS: LEVOTHYROXINE NA 25 MCG TABLET (FP) PO SCH (06:40)
[2021-07-31 09:14] LABS: BASO % 0.5 % (0-2.0); EOS % 3.1 % (0-4.5); HEMATOCRIT 39.4 % (32.4-45.2); HEMOGLOBIN 13.1 GM/dL (10.7-15.3); MCH 27.1 pg (25.7-33.7); MCHC 33.2 g/dl (32.0-36.0); MEAN CELL VOLUME 81.6 fl (80-96); MEAN PLT VOLUME 7.1 fl (7.5-11.1); MONO % 5.5 % (3.8-10.2); NEUT % 60.9 % (42.8-82.8); PLATELET COUNT 398 10^3/uL (134-434); RBC 4.83 M/mm3 (3.60-5.2); RDW 18.2 % (11.6-15.6); WHITE BLOOD COUNT 5.5 K/mm3 (4.0-10.0)
[2021-07-31 09:34] LABS: ALBUMIN 3.3 g/dl (3.4-5.0); BLOOD UREA NITROGEN 9.4 mg/dL (7-18); CALCIUM 8.9 mg/dL (8.5-10.1)
[2021-07-31] MEDS: ENOXAPARIN NA (PORCINE) 40 MG/0.4 ML DISP.SYRIN SQ SCH (09:36)
[2021-07-31] MEDS: POLYETHYLENE GLYCOL (HEALTHYLAX) 3350 17 GM PACKET PO SCH (09:37)
[2021-07-31 09:38] LABS: BILIRUBIN,TOTAL 0.6 mg/dL (0.2-1); CREATININE 0.7 mg/dL (0.55-1.3); TOT PROT 7.4 g/dl (6.4-8.2)
[2021-07-31 09:40] LABS: MAGNESIUM 2.3 mg/dL (1.8-2.4)
[2021-07-31] MEDS: LORATADINE 10 MG TABLET PO SCH (09:49)
[2021-07-31] MEDS ORDERED: PANTOPRAZOLE 40 MG TABLET PO SCH (10:00)
[2021-07-31] MEDS ORDERED: CEPHALEXIN MONOHYDRATE 500 MG CAPSULE (UD) PO SCH (10:00)
[2021-07-31 14:29] VITALS: BP 108/68; PULSE 100; TEMP 98.5
[2021-07-31] MEDS ORDERED: EZETIMIBE 10 MG TABLET (FP) PO ONE (14:40)
[2021-08-01] MEDS ORDERED: EZETIMIBE 10 MG TABLET (FP) PO SCH (10:00)
== END 2021-07-31 18:23 | disposition home or self-care (01) | DRG 463 ==
LOC: JER 07:40 → JERBED 11:17 → J8W 15:40
PROVIDERS: ADMIT Internal Medicine; ATTEND Nurse Practitioner Acute Care
DX: N39.0 Urinary tract infection, site not specified (principal); G43.909 Migraine, unspecified, not intractable, without status migrainosus; K76.0 Fatty (change of) liver, not elsewhere classified; E03.9 Hypothyroidism, unspecified; G47.00 Insomnia, unspecified; K21.9 Gastro-esophageal reflux disease without esophagitis; M54.6 Pain in thoracic spine; M79.10 Myalgia, unspecified site; R10.13 Epigastric pain; R11.2 Nausea with vomiting, unspecified; R35.0 Frequency of micturition; R42 Dizziness and giddiness; R53.81 Other malaise; R74.01 Elevation of levels of liver transaminase levels; K59.00 Constipation, unspecified
CPT/HCPCS: 36415; 70450-TC; 71045-TC-FY; 74181-TC; 76705-TC; 76775-TC; 80053; 80076; 80307; 81003; 82103; 82248; 82550; 83516; 83605; 83735; 84443; 84484; 84703; 85025; 86038; 86705; 86706; 86708; 87040; 87045; 87046; 87086; 87177; 87205; 87209; 87340; 87517; 87522; 87804; 93005; 93010; 99285-25; C9803; J0131; U0003; U0005

== ENCOUNTER 2021-09-11 04:47 | Day surgery (SDC) | payer OTHER ==
[2021-09-09 17:53] VITALS: BMI 26.1
[2021-09-11] MEDS ORDERED: MIDAZOLAM HCL 2 MG/2 ML SINGLE DOSE VIAL IVPUSH ONE ×2 (10:34→10:44)
[2021-09-11] MEDS ORDERED: ONDANSETRON 4 MG/2 ML VIAL ONE (13:49)
[2021-09-11] MEDS ORDERED: ONDANSETRON 4 MG/2 ML VIAL IVPUSH ONE (13:52)
[2021-09-11 17:36] VITALS: BP 110/68; PULSE 74; TEMP 98.2
== END 2021-09-11 15:55 | disposition home or self-care (01) ==
LOC: JRADIR 04:47
PROVIDERS: ATTEND Internal Medicine Gastroenterology
PROC: 0FB03ZX Excision of Liver, Percutaneous Approach, Diagnostic (ICD-10-PCS; principal; 2021-09-11)
DX: K76.0 Fatty (change of) liver, not elsewhere classified (principal)
CPT/HCPCS: 47000; 76942-TC; 81025; 87899; 88305-TC; 88313-TC

== ENCOUNTER 2022-01-01 18:21 | Inpatient (IN) | payer OTHER ==
[2022-01-01] MEDS ORDERED: KETOROLAC TROMETHAMINE 30 MG/1 ML VIAL IVPUSH ONE (22:03)
[2022-01-01] MEDS ORDERED: METOCLOPRAMIDE HCL INJECTION 10 MG/2 ML VIAL IVPUSH ONE (22:03)
[2022-01-01] MEDS ORDERED: FAMOTIDINE 20 MG/50 ML IVPB 20 MG/50 ML MG IVPB ONE ×2 (22:03→22:15)
[2022-01-01] MEDS ORDERED: SODIUM CHLORIDE 0.9% 500 ML INFUS.BAG IV ONE (22:04)
[2022-01-01] MEDS ORDERED: METOCLOPRAMIDE HCL INJECTION 10 MG/2 ML VIAL ONE (22:14)
[2022-01-01] MEDS ORDERED: KETOROLAC TROMETHAMINE 30 MG/1 ML VIAL ONE (22:15)
[2022-01-01 22:39] LABS: BASO % 0.2 % (0-2.0); EOS % 0.2 % (0-4.5); HEMOGLOBIN 14.6 GM/dL (10.7-15.3); LYMPH % 3.1 % (8-40); MCH 30.5 pg (25.7-33.7); MCHC 34.7 g/dl (32.0-36.0); MEAN CELL VOLUME 87.9 fl (80-96); MEAN PLT VOLUME 7.5 fl (7.5-11.1); MONO % 4.5 % (3.8-10.2); PLATELET COUNT 271 10^3/uL (134-434); RBC 4.77 M/mm3 (3.60-5.2); RDW 14.6 % (11.6-15.6); WHITE BLOOD COUNT 6.5 K/mm3 (4.0-10.0)
[2022-01-01 22:44] LABS: EPI CELLS 20 /uL (0-25.1); HYALINE CASTS 4 /uL (0-3.1); URINE APPEARANCE CLEAR; URINE BACTERIA 158 /uL (0-1359); URINE BILIRUBIN 1+ (NEGATIVE); URINE COLOR DK YELLOW; URINE GLUCOSE (UA) NEGATIVE (NEGATIVE); URINE KETONE TRACE (NEGATIVE); URINE LEUK ESTERASE 1+ (NEGATIVE); URINE NITRITE NEGATIVE (NEGATIVE); URINE PROTEIN 1+ (NEGATIVE); URINE WBC 99 /uL (0-25.8)
[2022-01-01 23:02] LABS: ALBUMIN 3.4 g/dl (3.4-5.0); BLOOD UREA NITROGEN 11.1 mg/dL (7-18); CALCIUM 8.5 mg/dL (8.5-10.1)
[2022-01-01 23:05] LABS: ANISOCYTOSIS 1+; CREATININE 0.9 mg/dL (0.55-1.3)
[2022-01-01 23:07] LABS: BILIRUBIN,TOTAL 2.3 mg/dL (0.2-1); TOT PROT 7.2 g/dl (6.4-8.2)
[2022-01-01 23:27] LABS: URINE RBC 19.9 /uL (0-23.9)
[2022-01-02] MEDS ORDERED: CEFTRIAXONE 1,000 MG in DEXTROSE 5%-WATER - 50 ML IVPB ONE (02:14)
[2022-01-02] MEDS ORDERED: CEFTRIAXONE 1 GM/50 ML BAG ONE (02:50)
[2022-01-02] MEDS ORDERED: ACETAMINOPHEN 325 MG TABLET (FP) PO PRN (04:03)
[2022-01-02] MEDS ORDERED: RIZATRIPTAN BENZOATE 10 MG PO PRN (04:08)
[2022-01-02] MEDS ORDERED: IBUPROFEN 400 MG TABLET (FP) PO PRN (04:26)
[2022-01-02] MEDS ORDERED: IBUPROFEN 200 MG TABLET PO PRN (04:28)
[2022-01-02 05:48] VITALS: BMI 26.6
[2022-01-02] MEDS ORDERED: METOCLOPRAMIDE HCL 10 MG TABLET (FP) PO PRN (06:00)
[2022-01-02] MEDS: LEVOTHYROXINE NA 25 MCG TABLET (FP) PO SCH (06:30)
[2022-01-02 08:38] LABS: BILIRUBIN,DIRECT 1.3 mg/dL (0.0-0.2); SGOT/AST 882 U/L (15-37); SGPT/ALT 966 U/L (13-61)
[2022-01-02 08:41] LABS: ALK PHOS 134 U/L (45-117)
[2022-01-02] MEDS ORDERED: NASONEX TP SCH (10:00)
[2022-01-02] MEDS ORDERED: DEXTROSE 5%-WATER - 50 ML IVPB ONE ×2 (11:49→18:35)
[2022-01-02] MEDS ORDERED: PIPERACILLIN/TAZOBACTAM 3.375 GM VIAL IVPB ONE ×2 (11:49→18:35)
[2022-01-02] MEDS: SODIUM CHLORIDE 1,000 ML IV SCH (11:58)
[2022-01-02] MEDS: FAMOTIDINE 20 MG TABLET PO SCH (11:58)
[2022-01-02] MEDS: PIPERACILLIN/TAZOB 3.375 GM 3.375 GM in DEXTROSE 5%-WATER - 50 ML IVPB SCH ×2 (11:58→18:37)
[2022-01-02] MEDS: ENOXAPARIN NA (PORCINE) 40 MG/0.4 ML DISP.SYRIN SQ SCH (11:58)
[2022-01-02] MEDS: POLYETHYLENE GLYCOL (HEALTHYLAX) 3350 17 GM PACKET PO SCH (12:15)
[2022-01-02] MEDS: NORTRIPTYLINE HCL 25 MG CAPSULE PO SCH (22:10)
[2022-01-02] MEDS: LACTOBACILLUS ACIDOPHILUS 1 TABLET PO SCH (22:10)
[2022-01-03] MEDS ORDERED: PIPERACILLIN/TAZOBACTAM 3.375 GM VIAL IVPB ONE ×2 (00:53→09:23)
[2022-01-03] MEDS ORDERED: DEXTROSE 5%-WATER - 50 ML IVPB ONE ×2 (00:53→09:23)
[2022-01-03] MEDS: PIPERACILLIN/TAZOB 3.375 GM 3.375 GM in DEXTROSE 5%-WATER - 50 ML IVPB SCH ×2 (01:03→09:30)
[2022-01-03] MEDS: LEVOTHYROXINE NA 25 MCG TABLET (FP) PO SCH (06:15)
[2022-01-03 09:26] LABS: HEMATOCRIT 38.5 % (32.4-45.2); HEMOGLOBIN 13.3 GM/dL (10.7-15.3); MCH 30.3 pg (25.7-33.7); MCHC 34.6 g/dl (32.0-36.0); MEAN CELL VOLUME 87.7 fl (80-96); PLATELET COUNT 273 10^3/uL (134-434); RBC 4.38 M/mm3 (3.60-5.2); WHITE BLOOD COUNT 4.7 K/mm3 (4.0-10.0)
[2022-01-03] MEDS: ENOXAPARIN NA (PORCINE) 40 MG/0.4 ML DISP.SYRIN SQ SCH (09:27)
[2022-01-03] MEDS: FAMOTIDINE 20 MG TABLET PO SCH (09:27)
[2022-01-03] MEDS: POLYETHYLENE GLYCOL (HEALTHYLAX) 3350 17 GM PACKET PO SCH (09:29)
[2022-01-03 09:31] LABS: ALBUMIN 2.8 g/dl (3.4-5.0); CALCIUM 8.1 mg/dL (8.5-10.1)
[2022-01-03 09:33] LABS: INR 1.05 (0.83-1.09); PROTHROMBIN TIME (PATIENT) 12.1 SEC (9.7-13.0)
[2022-01-03 09:34] LABS: CREATININE 0.7 mg/dL (0.55-1.3)
[2022-01-03 09:36] LABS: BILIRUBIN,TOTAL 0.8 mg/dL (0.2-1); PHOSPHOROUS 2.7 mg/dL (2.5-4.9); TOT PROT 6.2 g/dl (6.4-8.2)
[2022-01-03 10:25] LABS: HIV INTERPRETATION NEGATIVE (NEGATIVE)
[2022-01-03] MEDS: SODIUM CHLORIDE 1,000 ML IV SCH (16:27)
[2022-01-03] MEDS: LACTOBACILLUS ACIDOPHILUS 1 TABLET PO SCH (21:52)
[2022-01-03] MEDS: NORTRIPTYLINE HCL 25 MG CAPSULE PO SCH (21:52)
[2022-01-03] MEDS: CEFUROXIME AXETIL 500 MG TABLET PO SCH (21:53)
[2022-01-04 01:06] LABS: HCV ALPHA 2 MACRO CHART 112 mg/dL (110-276)
[2022-01-04] MEDS: SODIUM CHLORIDE 1,000 ML IV SCH ×2 (04:25→16:48)
[2022-01-04] MEDS: LEVOTHYROXINE NA 25 MCG TABLET (FP) PO SCH (06:21)
[2022-01-04 08:39] LABS: HEMATOCRIT 38.1 % (32.4-45.2); HEMOGLOBIN 13.3 GM/dL (10.7-15.3); MCH 30.4 pg (25.7-33.7); MCHC 34.8 g/dl (32.0-36.0); MEAN CELL VOLUME 87.6 fl (80-96); MEAN PLT VOLUME 6.8 fl (7.5-11.1); PLATELET COUNT 274 10^3/uL (134-434); RBC 4.36 M/mm3 (3.60-5.2); RDW 14.8 % (11.6-15.6); WHITE BLOOD COUNT 4.4 K/mm3 (4.0-10.0)
[2022-01-04 08:47] LABS: CALCIUM 8.6 mg/dL (8.5-10.1)
[2022-01-04 08:48] LABS: BLOOD UREA NITROGEN 8.4 mg/dL (7-18)
[2022-01-04 08:51] LABS: CREATININE 0.6 mg/dL (0.55-1.3)
[2022-01-04 08:53] LABS: BILIRUBIN,TOTAL 0.5 mg/dL (0.2-1); TOT PROT 6.2 g/dl (6.4-8.2)
[2022-01-04] MEDS: ENOXAPARIN NA (PORCINE) 40 MG/0.4 ML DISP.SYRIN SQ SCH (09:29)
[2022-01-04] MEDS: CEFUROXIME AXETIL 500 MG TABLET PO SCH ×2 (09:29→21:36)
[2022-01-04] MEDS: FAMOTIDINE 20 MG TABLET PO SCH (09:29)
[2022-01-04] MEDS: POLYETHYLENE GLYCOL (HEALTHYLAX) 3350 17 GM PACKET PO SCH (09:34)
[2022-01-04] MEDS ORDERED: URSODIOL 300 MG CAPSULE PO SCH (10:00)
[2022-01-04] MEDS: NORTRIPTYLINE HCL 25 MG CAPSULE PO SCH (21:36)
[2022-01-04] MEDS: LACTOBACILLUS ACIDOPHILUS 1 TABLET PO SCH (21:36)
[2022-01-05] MEDS: LEVOTHYROXINE NA 25 MCG TABLET (FP) PO SCH (06:04)
[2022-01-05 09:17] LABS: BASO % 0.6 % (0-2.0); EOS % 3.1 % (0-4.5); HEMATOCRIT 41.5 % (32.4-45.2); HEMOGLOBIN 14.2 GM/dL (10.7-15.3); LYMPH % 27.5 % (8-40); MCH 30.2 pg (25.7-33.7); MCHC 34.3 g/dl (32.0-36.0); MEAN PLT VOLUME 6.6 fl (7.5-11.1); MONO % 3.9 % (3.8-10.2); NEUT % 64.9 % (42.8-82.8); PLATELET COUNT 321 10^3/uL (134-434); RBC 4.72 M/mm3 (3.60-5.2); RDW 14.8 % (11.6-15.6)
[2022-01-05 09:21] LABS: INR 0.95 (0.83-1.09); PROTHROMBIN TIME (PATIENT) 10.9 SEC (9.7-13.0)
[2022-01-05 09:40] LABS: ALBUMIN 3.3 g/dl (3.4-5.0)
[2022-01-05] MEDS: CEFUROXIME AXETIL 500 MG TABLET PO SCH ×2 (09:40→21:33)
[2022-01-05] MEDS: ENOXAPARIN NA (PORCINE) 40 MG/0.4 ML DISP.SYRIN SQ SCH (09:40)
[2022-01-05 09:42] LABS: BILIRUBIN,DIRECT 0.2 mg/dL (0.0-0.2)
[2022-01-05 09:43] LABS: ALBUMIN 3.2 g/dl (3.4-5.0); BLOOD UREA NITROGEN 13.4 mg/dL (7-18); CALCIUM 8.7 mg/dL (8.5-10.1); MAGNESIUM 2.1 mg/dL (1.8-2.4)
[2022-01-05 09:44] LABS: TOT PROT 6.8 g/dl (6.4-8.2)
[2022-01-05 09:45] LABS: BILIRUBIN,TOTAL 0.4 mg/dL (0.2-1)
[2022-01-05 09:46] LABS: BILIRUBIN,DIRECT 0.3 mg/dL (0.0-0.2); CREATININE 0.8 mg/dL (0.55-1.3); PHOSPHOROUS 3.6 mg/dL (2.5-4.9)
[2022-01-05 09:48] LABS: BILIRUBIN,TOTAL 0.4 mg/dL (0.2-1); TOT PROT 6.8 g/dl (6.4-8.2)
[2022-01-05] MEDS: SODIUM CHLORIDE 1,000 ML IV SCH (15:29)
[2022-01-05] MEDS: LACTOBACILLUS ACIDOPHILUS 1 TABLET PO SCH (21:33)
[2022-01-05] MEDS: NORTRIPTYLINE HCL 25 MG CAPSULE PO SCH (21:33)
[2022-01-06] MEDS: SODIUM CHLORIDE 1,000 ML IV SCH ×3 (06:02→21:47)
[2022-01-06] MEDS: LEVOTHYROXINE NA 25 MCG TABLET (FP) PO SCH (06:02)
[2022-01-06 07:51] LABS: ALBUMIN 2.9 g/dl (3.4-5.0); CALCIUM 8.6 mg/dL (8.5-10.1)
[2022-01-06 07:52] LABS: BLOOD UREA NITROGEN 14.2 mg/dL (7-18); MAGNESIUM 2.3 mg/dL (1.8-2.4)
[2022-01-06 07:54] LABS: PHOSPHOROUS 3.9 mg/dL (2.5-4.9)
[2022-01-06 07:55] LABS: CREATININE 0.7 mg/dL (0.55-1.3)
[2022-01-06 07:56] LABS: BILIRUBIN,TOTAL 0.5 mg/dL (0.2-1); TOT PROT 6.2 g/dl (6.4-8.2)
[2022-01-06 07:58] LABS: INR 0.93 (0.83-1.09); PROTHROMBIN TIME (PATIENT) 10.7 SEC (9.7-13.0)
[2022-01-06 08:07] LABS: BASO % 0.5 % (0-2.0); EOS % 3.3 % (0-4.5); HEMATOCRIT 38.9 % (32.4-45.2); HEMOGLOBIN 13.2 GM/dL (10.7-15.3); LYMPH % 32.2 % (8-40); MCH 29.9 pg (25.7-33.7); MCHC 34.1 g/dl (32.0-36.0); MEAN CELL VOLUME 87.8 fl (80-96); MEAN PLT VOLUME 6.7 fl (7.5-11.1); PLATELET COUNT 307 10^3/uL (134-434); RBC 4.43 M/mm3 (3.60-5.2); RDW 14.6 % (11.6-15.6); WHITE BLOOD COUNT 5.7 K/mm3 (4.0-10.0)
[2022-01-06] MEDS: ENOXAPARIN NA (PORCINE) 40 MG/0.4 ML DISP.SYRIN SQ SCH (09:29)
[2022-01-06] MEDS: CEFUROXIME AXETIL 500 MG TABLET PO SCH ×2 (09:29→21:49)
[2022-01-06 16:08] LABS: IGA IMMUNOGLOBULIN 481 mg/dL (87-352); IGG QN IMMUNOGLOBULIN 981 mg/dL (586-1602); IGM QN SERUM 189 mg/dL (26-217)
[2022-01-06 21:07] LABS: GLIADIN ANTIBODY IGA 7 units (0-19); GLIADIN ANTIBODY IGG 4 units (0-19); TRANSGLUTAMINASE IGG 7 U/mL (0-5)
[2022-01-06] MEDS: NORTRIPTYLINE HCL 25 MG CAPSULE PO SCH (21:49)
[2022-01-06] MEDS: LACTOBACILLUS ACIDOPHILUS 1 TABLET PO SCH (21:49)
[2022-01-07] MEDS: SODIUM CHLORIDE 1,000 ML IV SCH (05:58)
[2022-01-07] MEDS: LEVOTHYROXINE NA 25 MCG TABLET (FP) PO SCH (05:59)
[2022-01-07 08:27] LABS: BASO % 0.5 % (0-2.0); EOS % 2.6 % (0-4.5); HEMATOCRIT 38.1 % (32.4-45.2); HEMOGLOBIN 12.8 GM/dL (10.7-15.3); LYMPH % 28.8 % (8-40); MCH 29.8 pg (25.7-33.7); MCHC 33.5 g/dl (32.0-36.0); MEAN CELL VOLUME 88.9 fl (80-96); MEAN PLT VOLUME 6.9 fl (7.5-11.1); MONO % 6.3 % (3.8-10.2); NEUT % 61.8 % (42.8-82.8); PLATELET COUNT 332 10^3/uL (134-434); RBC 4.28 M/mm3 (3.60-5.2); RDW 14.8 % (11.6-15.6); WHITE BLOOD COUNT 6.6 K/mm3 (4.0-10.0)
[2022-01-07 08:52] LABS: CALCIUM 8.6 mg/dL (8.5-10.1)
[2022-01-07 08:53] LABS: ALBUMIN 3.1 g/dl (3.4-5.0); BLOOD UREA NITROGEN 10.8 mg/dL (7-18); MAGNESIUM 2.4 mg/dL (1.8-2.4)
[2022-01-07 08:56] LABS: CREATININE 0.7 mg/dL (0.55-1.3); PHOSPHOROUS 3.4 mg/dL (2.5-4.9)
[2022-01-07 08:57] LABS: BILIRUBIN,TOTAL 0.6 mg/dL (0.2-1); TOT PROT 6.1 g/dl (6.4-8.2)
[2022-01-07] MEDS: ENOXAPARIN NA (PORCINE) 40 MG/0.4 ML DISP.SYRIN SQ SCH (10:18)
[2022-01-07] MEDS: CEFUROXIME AXETIL 500 MG TABLET PO SCH (10:18)
[2022-01-07 14:14] VITALS: BP 117/80; PULSE 109; TEMP 98.3
== END 2022-01-07 16:46 | disposition home or self-care (01) | DRG 720 ==
LOC: JER 18:21 → JERBED 01-02 02:20 → J6S 01-02 05:22
PROVIDERS: ADMIT Hospitalist; ATTEND Internal Medicine
DX: A41.89 Other specified sepsis (principal); N39.0 Urinary tract infection, site not specified; K21.9 Gastro-esophageal reflux disease without esophagitis; E03.9 Hypothyroidism, unspecified; G43.909 Migraine, unspecified, not intractable, without status migrainosus; R50.9 Fever, unspecified; R74.8 Abnormal levels of other serum enzymes; K76.0 Fatty (change of) liver, not elsewhere classified; R00.0 Tachycardia, unspecified
CPT/HCPCS: 36415; 71046-TC-FY; 74177-TC; 76705-TC; 76775-TC; 80053; 80076; 80307; 81003; 82103; 82172; 82247; 82248; 82525; 82550; 82784; 82787; 82977; 83010; 83036; 83516; 83690; 83735; 83883; 84075; 84100; 84450; 84460; 84484; 85025; 85027; 85610; 86160; 86162; 86225; 86235; 86705; 86707; 86708; 86709; 86803; 87040; 87086; 87340; 87350; 87389; 87517; 93005; 93010; 99285-25; C9803; U0003; U0005

== ENCOUNTER 2022-04-21 04:44 | Day surgery (SDC) | payer OTHER ==
[2022-04-16 11:47] VITALS: BMI 23.6
[2022-04-21] MEDS ORDERED: BUPIVACAINE HCL/PF 0.5% (5MG/ML) 10 ML VIAL ONE (07:47)
[2022-04-21] MEDS ORDERED: BUPIVACAINE LIPOSOME/PF (EXPAREL) 266 MG/20 ML VIAL ONE (08:58)
[2022-04-21] MEDS ORDERED: BUPIVACAINE HCL/PF 0.25% (2.5MG/ML) 10 ML VIAL ONE (08:58)
[2022-04-21] MEDS ORDERED: PROPOFOL 20 ML ONE (09:00)
[2022-04-21] MEDS ORDERED: ROCURONIUM BROMIDE 50 MG/5 ML SYRINGE ONE (09:00)
[2022-04-21] MEDS ORDERED: MIDAZOLAM HCL 2 MG/2 ML SINGLE DOSE VIAL ONE ×2 (09:00)
[2022-04-21] MEDS ORDERED: CEFAZOLIN 2 GM in DEXTROSE 5%-WATER - 100 ML IVPB ONE (09:36)
[2022-04-21] MEDS ORDERED: ceFAZolin SODIUM 1 GM VIAL IVPB ONE (09:50)
[2022-04-21] MEDS ORDERED: ceFAZolin SODIUM 1 GM VIAL ONE (09:50)
[2022-04-21] MEDS ORDERED: DEXAMETHASONE SOD PHOSPHATE 4 MG/1 ML VIAL ONE (09:50)
[2022-04-21] MEDS ORDERED: METHYLENE BLUE 50 MG/10 ML AMPUL ONE (10:21)
[2022-04-21] MEDS ORDERED: BUPIVACAINE HCL/PF 0.5% (5MG/ML) 10 ML VIAL IJ ONE (12:01)
[2022-04-21] MEDS ORDERED: ACETAMINOPHEN 1000 MG/100 ML BAG IVPB ONE (12:24)
[2022-04-21] MEDS ORDERED: ONDANSETRON 4 MG/2 ML VIAL IVPUSH PRN (12:24)
[2022-04-21] MEDS ORDERED: LACTATED RINGERS SOLUTION 1,000 ML IV SCH (12:30)
[2022-04-21] MEDS ORDERED: FENTANYL CITRATE/PF 50 MCG/ML VIAL ONE ×2 (12:36→13:12)
[2022-04-21] MEDS ORDERED: ACETAMINOPHEN INJECTION 100 ML IVPB ONE (12:36)
[2022-04-21] MEDS ORDERED: IBUPROFEN 600 MG TABLET (FP) PO PRN (15:07)
[2022-04-21] MEDS ORDERED: ACETAMINOPHEN 325 MG TABLET (FP) PO PRN (15:07)
[2022-04-21] MEDS: oxyCODONE HCL 5 MG TABLET PO PRN (20:05)
[2022-04-22] MEDS: oxyCODONE HCL 5 MG TABLET PO PRN (05:23)
[2022-04-22 07:57] LABS: BASO % 0.4 % (0-2.0); EOS % 0.6 % (0-4.5); HEMATOCRIT 38.6 % (32.4-45.2); HEMOGLOBIN 13.2 GM/dL (10.7-15.3); MCH 30.3 pg (25.7-33.7); MCHC 34.1 g/dl (32.0-36.0); MEAN CELL VOLUME 88.8 fl (80-96); MEAN PLT VOLUME 6.9 fl (7.5-11.1); PLATELET COUNT 342 10^3/uL (134-434); RBC 4.34 M/mm3 (3.60-5.2); RDW 13.3 % (11.6-15.6); WHITE BLOOD COUNT 9.2 K/mm3 (4.0-10.0)
[2022-04-22 08:21] LABS: CALCIUM 8.6 mg/dL (8.5-10.1)
[2022-04-22 08:22] LABS: ALBUMIN 3.1 g/dl (3.4-5.0); BLOOD UREA NITROGEN 8.9 mg/dL (7-18)
[2022-04-22 08:25] LABS: CREATININE 0.7 mg/dL (0.55-1.3)
[2022-04-22 08:27] LABS: BILIRUBIN,TOTAL 0.6 mg/dL (0.2-1)
[2022-04-22 13:04] VITALS: BP 117/79; PULSE 91; TEMP 99
== END 2022-04-22 13:35 | disposition home or self-care (01) ==
LOC: JASU-SURG 04:44 → JASUSAT 04:44 → J3W 16:20 → JASUSAT 04-22 13:35
PROVIDERS: ATTEND Obstetrics & Gynecology
PROC: 0UT9FZZ Resection of Uterus, Via Natural or Artificial Opening With Percutaneous Endoscopic Assistance (ICD-10-PCS; principal; 2022-04-21 10:02)
PROC: 0UT7FZZ Resection of Bilateral Fallopian Tubes, Via Natural or Artificial Opening With Percutaneous Endoscopic Assistance (ICD-10-PCS; 2022-04-21 10:02)
PROC: 0TJB8ZZ Inspection of Bladder, Via Natural or Artificial Opening Endoscopic (ICD-10-PCS; 2022-04-21 10:02)
DX: D25.9 Leiomyoma of uterus, unspecified (principal); N80.0 Endometriosis of uterus; N92.1 Excessive and frequent menstruation with irregular cycle; N94.6 Dysmenorrhea, unspecified; N93.0 Postcoital and contact bleeding
CPT/HCPCS: 36415; 80053; 81025; 85025; 88302-TC; 88307-TC; 94010; 94760; Q9968

== ENCOUNTER 2022-06-17 22:28 | Emergency (ER) | payer OTHER ==
[2022-06-17 22:42] VITALS: PULSE 115; RESP 18; BMI 22.8
[2022-06-18] MEDS ORDERED: KETOROLAC TROMETHAMINE 30 MG/1 ML VIAL IVPUSH ONE (01:23)
[2022-06-18] MEDS ORDERED: SODIUM CHLORIDE 0.9% 500 ML INFUS.BAG IV ONE (01:25)
[2022-06-18 01:26] LABS: BASO % 0.2 % (0-2.0); EOS % 0.3 % (0-4.5); HEMATOCRIT 42.4 % (32.4-45.2); HEMOGLOBIN 13.9 GM/dL (10.7-15.3); LYMPH % 9.1 % (8-40); MCH 29.5 pg (25.7-33.7); MCHC 32.8 g/dl (32.0-36.0); MEAN CELL VOLUME 90.1 fl (80-96); MEAN PLT VOLUME 7.5 fl (7.5-11.1); MONO % 7.8 % (3.8-10.2); NEUT % 82.6 % (42.8-82.8); PH,URINE 5.5 (5.0-8.0); PLATELET COUNT 326 10^3/uL (134-434); RBC 4.71 M/mm3 (3.60-5.2); URINE APPEARANCE CLEAR; URINE BILIRUBIN NEGATIVE (NEGATIVE); URINE COLOR YELLOW; URINE GLUCOSE (UA) NEGATIVE (NEGATIVE); URINE KETONE NEGATIVE (NEGATIVE); URINE LEUK ESTERASE NEGATIVE (NEGATIVE); URINE NITRITE NEGATIVE (NEGATIVE); URINE PROTEIN TRACE (NEGATIVE); URINE UROBILINOGEN 0.2 mg/dL (0.2-1.0); WHITE BLOOD COUNT 13.2 K/mm3 (4.0-10.0)
[2022-06-18] MEDS ORDERED: KETOROLAC TROMETHAMINE 30 MG/1 ML VIAL ONE (01:43)
[2022-06-18 01:50] LABS: CALCIUM 8.5 mg/dL (8.5-10.1)
[2022-06-18 01:51] LABS: ALBUMIN 3.4 g/dl (3.4-5.0)
[2022-06-18 01:54] LABS: CREATININE 0.8 mg/dL (0.55-1.3)
[2022-06-18 01:58] LABS: INR 1.1 (0.83-1.09); PROTHROMBIN TIME (PATIENT) 12.7 SEC (9.7-13.0)
[2022-06-18 02:00] LABS: ACTIVATED PTT 27.3 SECONDS (25.2-36.5)
[2022-06-18] MEDS ORDERED: metroNIDAZOLE 250 MG TABLET PO ONE (02:06)
[2022-06-18] MEDS ORDERED: AMOX TR/POT CLAV 500MG/125MG TABLETS (FP) PO ONE (02:06)
[2022-06-18 02:30] VITALS: BP 118/81; TEMP 100.9
[2022-06-18] MEDS ORDERED: AMOX TR/POT CLAV 500MG/125MG TABLETS (FP) ONE (02:34)
[2022-06-18] MEDS ORDERED: metroNIDAZOLE 250 MG TABLET ONE (02:34)
== END 2022-06-18 03:12 | disposition home or self-care (01) ==
LOC: JER 22:28
PROC: 3E0333Z Introduction of Anti-inflammatory into Peripheral Vein, Percutaneous Approach (ICD-10-PCS; principal; 2022-06-17)
DX: N93.9 Abnormal uterine and vaginal bleeding, unspecified (principal)
CPT/HCPCS: 36415; 80053; 81003; 85025; 85610; 85730; 99285-25

== ENCOUNTER 2022-10-20 16:14 | Emergency (ER) | payer OTHER ==
[2022-10-20 16:50] VITALS: BP 121/81; PULSE 97; RESP 16; TEMP 98.1; BMI 22.6
[2022-10-20] MEDS ORDERED: IBUPROFEN 600 MG TABLET (FP) PO ONE (17:44)
[2022-10-20] MEDS ORDERED: DEXAMETHASONE SOD PHOSPHATE 10 MG/1 ML VIAL IM ONE (17:44)
[2022-10-20] MEDS ORDERED: DEXAMETHASONE SOD PHOSPHATE 10 MG/1 ML VIAL ONE (17:57)
== END 2022-10-20 19:03 | disposition home or self-care (01) ==
LOC: JER 16:14
PROC: 3E0233Z Introduction of Anti-inflammatory into Muscle, Percutaneous Approach (ICD-10-PCS; principal; 2022-10-20)
DX: U07.1 COVID-19 (principal); J02.9 Acute pharyngitis, unspecified
CPT/HCPCS: 0241U-QW; 99284-25; J1100

== ENCOUNTER 2024-01-31 20:04 | Emergency (ER) | payer OTHER ==
[2024-01-31 20:17] VITALS: TEMP 98.1; BMI 26.2
[2024-01-31] MEDS ORDERED: METOCLOPRAMIDE HCL INJECTION 10 MG/2 ML VIAL ONE (20:31)
[2024-01-31] MEDS: SODIUM CHLORIDE 0.9% 500 ML INFUS.BAG IV ONE (20:51)
[2024-01-31] MEDS: METOCLOPRAMIDE HCL INJECTION 10 MG/2 ML VIAL IVPUSH ONE (20:51)
[2024-01-31 20:56] LABS: BASO % 0.5 % (0-2.0); EOS % 1.4 % (0-4.5); HEMATOCRIT 43.5 % (32.4-45.2); HEMOGLOBIN 14.6 GM/dL (10.7-15.3); LYMPH % 27.3 % (8-40); MCH 29.6 pg (25.7-33.7); MCHC 33.6 g/dl (32.0-36.0); MEAN CELL VOLUME 88.1 fl (80-96); MEAN PLT VOLUME 6.8 fl (7.5-11.1); MONO % 8.3 % (3.8-10.2); NEUT % 62.5 % (42.8-82.8); PLATELET COUNT 351 10^3/uL (134-434); RBC 4.94 M/mm3 (3.60-5.2); RDW 13.9 % (11.6-15.6); WHITE BLOOD COUNT 8.6 K/mm3 (4.0-10.0)
[2024-01-31 21:04] LABS: INR 0.95 (0.83-1.09)
[2024-01-31 21:08] LABS: URINE APPEARANCE CLEAR; URINE BILIRUBIN NEGATIVE (NEGATIVE); URINE COLOR YELLOW; URINE GLUCOSE (UA) NEGATIVE (NEGATIVE); URINE KETONE NEGATIVE (NEGATIVE); URINE LEUK ESTERASE NEGATIVE (NEGATIVE); URINE NITRITE NEGATIVE (NEGATIVE); URINE PROTEIN NEGATIVE (NEGATIVE); URINE UROBILINOGEN 0.2 mg/dL (0.2-1.0)
[2024-01-31] MEDS ORDERED: FLUCONAZOLE 150 MG TABLET PO ONE (21:09)
[2024-01-31 21:12] LABS: POTASSIUM 4.2 mmol/L (3.5-5.1)
[2024-01-31] MEDS: FLUCONAZOLE 150 MG TABLET PO ONE (21:13)
[2024-01-31 21:14] LABS: CALCIUM 9.1 mg/dL (8.5-10.1)
[2024-01-31 21:15] LABS: ALBUMIN 3.9 g/dl (3.4-5.0); BLOOD UREA NITROGEN 16.6 mg/dL (7-18); MAGNESIUM 2.2 mg/dL (1.8-2.4)
[2024-01-31 21:18] LABS: CREATININE 0.7 mg/dL (0.55-1.3)
[2024-01-31 21:19] LABS: TOT PROT 7.5 g/dl (6.4-8.2)
[2024-01-31 21:20] LABS: BILIRUBIN,TOTAL 0.4 mg/dL (0.2-1)
[2024-01-31 22:40] VITALS: BP 118/81; PULSE 86; RESP 16
[2024-01-31] MEDS ORDERED: MAG HYDROX/AL HYDROX/SIMETH 30 ML UNIT-DOSE CUP ONE (22:46)
[2024-01-31] MEDS: MAG HYDROX/AL HYDROX/SIMETH 30 ML UNIT-DOSE CUP PO ONE (22:48)
== END 2024-01-31 23:10 | disposition home or self-care (01) ==
LOC: JER 20:04
PROC: 3E033GC Introduction of Other Therapeutic Substance into Peripheral Vein, Percutaneous Approach (ICD-10-PCS; principal; 2024-01-31)
DX: R10.84 Generalized abdominal pain (principal); R11.0 Nausea; K59.00 Constipation, unspecified; K52.9 Noninfective gastroenteritis and colitis, unspecified; R42 Dizziness and giddiness; R30.0 Dysuria; L29.2 Pruritus vulvae; R10.2 Pelvic and perineal pain
CPT/HCPCS: 36415; 74177-TC; 80053; 81003; 83690; 83735; 85025; 85610; 85730; 86850; 86900; 86901; 87086; 93005; 93010; 99285-25; Q9967